=== PATIENT | male | born 1995 | race Caucasian/White ===

== ENCOUNTER 2021-02-20 14:56 | Emergency (ER) | payer BC ==
[~2021-02-20] VITALS: Ht 188 cm; Wt 86.4 kg
[2021-02-20 16:26] VITALS: BP 134/76; TEMP 100.2
[2021-02-20] MEDS ORDERED: TAMIFLU 75MG75 MG PO (17:59)
[2021-02-20 18:29] VITALS: PULSE 91
== END 2021-02-20 18:30 | disposition home or self-care (01) ==
LOC: COL.ER 14:56
DX: J10.1 Influenza due to other identified influenza virus with other respiratory manifestations (principal); Z20.822 Contact with and (suspected) exposure to COVID-19